=== PATIENT | female | born 1960 | race Caucasian/White ===

== ENCOUNTER → 2017-02-23 | Outpatient (CLI) | payer BC | END | disposition home or self-care (01) | LOC: C.PAPS 14:52 | PROVIDERS: ATTEND Obstetrics & Gynecology | DX: Z01.419 Encounter for gynecological examination (general) (routine) without abnormal findings (principal) ==

== ENCOUNTER 2017-06-16 06:32 | Inpatient (IN) | payer BC ==
[2017-05-29 14:37] VITALS: BMI 24.0
--- NOTE | 2017-05-29 15:03 | PAT Medication Instructions ---
Service Date May 29, 2017. Current Home Medication List Acetaminophen Tab (Tylenol), 650 MG PO prn Estrog Conj/Medryoxyprog Acet (Prempro 0.625MG/2.5MG), 1 TAB PO QPM Medication Instructions For Your Scheduled Surgery - Take the following medications the morning of surgery with a sip of water OTHERWISE NOTHING TO EAT OR DRINK AFTER MIDNIGHT: Acetaminophen Tab (Tylenol), 650 MG PO prn (may take if needed up to 4 hours prior to surgery) - Take the following medications as scheduled the night before surgery: Estrog Conj/Medryoxyprog Acet (Prempro 0.625MG/2.5MG), 1 TAB PO QPM Acetaminophen Tab (Tylenol), 650 MG PO prn If you have any questions please call us at [phone] or [phone] or [phone]
[2017-05-29 15:29] LABS: BASO % 0.5 %; BASO ABS # 0.03 K/uL (0-0.2); COMPLETE YES; EOS % 1.6 %; HEMATOCRIT 41.1 % (37-47); IG% 0.2 %; LYMPH % 25.9 %; LYMPH ABS # 1.58 K/uL (1.2-3.4); MEAN CELL VOLUME 89.5 fL (80-100); MEAN CORPUSCULAR HEMOGLOBIN 30.5 pg (25-34); MEAN CORPUSCULAR HGB CONC 34.1 g/dl (32-36); MEAN PLATELET VOLUME 10.1 fL (7.4-10.4); MONO % 9.5 %; NEUT % 62.3 %; PLATELET COUNT 253 K/uL (130-400); RED BLOOD COUNT 4.59 M/uL (4.2-5.4); WHITE BLOOD COUNT 6.11 K/uL (4.8-10.8)
[2017-05-29 15:51] LABS: PROTHROMBIN TIME (PATIENT) 10.2 SECONDS (9.0-12.0)
[2017-05-29 16:03] LABS: BUN/CREATININE RATIO 22.5 (10-20); CREATININE 0.73 mg/dl (0.60-1.20); POTASSIUM 4.1 mmol/L (3.5-5.1)
--- NOTE | 2017-05-30 11:30 | HISTORY & PHYSICAL EXAMINATION ---
DATE OF ADMISSION: 06/16/2017 CHIEF COMPLAINT: Lower back pain, left-sided ovarian tumor. HISTORY OF PRESENT ILLNESS: The patient is a 56-year-old 2, para 2. She has previously had a D&C, diagnostic laparoscopy in 1999 at which time she was diagnosed with endometriosis by biopsy and she had a second to third degree uterine prolapse being able to bring the cervix out beyond the vaginal introitus. Since that time, she has had well over a year of lower back pain when she is on her feet for long periods of time. This interferes with her ability to function and to do her job as a teacher and it has been suspected to be due to her prolapse. She has also had left-sided pain. She has had a left-sided ovarian cyst, about a 5 cm range present for several years and causing her discomfort. She is presently being scheduled for a left salpingo-oophorectomy, supracervical hysterectomy and suspension of the cervix and obliteration of the cul-de-sac. PAST MEDICAL HISTORY: She got 2 children in good health. ALLERGIES: She has no known drug allergies. PAST SURGICAL HISTORY: She had a D&C, diagnostic laparoscopic in 1999. MEDICAL HISTORY: No history of rheumatic fever, heart disease, heart murmur, diabetes, tuberculosis. SOCIAL HISTORY: No smoking. No excessive alcohol intake. Works as a teacher. FAMILY HISTORY: Mother and father in poor health. Mom is about 80, congestive heart failure and severe Crohn's disease. Father is in his 80s, Parkinson's. She has 1 brother who had a craniopharyngioma, has been on total hormone replacement for years and has a lot of disability secondary to this condition. REVIEW OF SYSTEMS: No symptoms of frequent or severe headaches, ear infections, nosebleed, sore throats, kidney or bladder infections. PHYSICAL EXAMINATION: GENERAL: Well-developed, well-nourished 56-year-old white female, alert, oriented x3 and cooperative in no acute distress, appears her stated age. EYES: Conjunctivae are pink, sclerae white, no evidence of jaundice. EARS: Had normal light reflex bilaterally. NOSE: Had normal mucosa. Septum is midline. There were no polyps. THROAT: No erythema or evidence of infection. Teeth are in good state of repair. HEAD: Normocephalic, normal distribution of hair. NECK: Supple. Trachea midline. Thyroid is not enlarged. There is no adenopathy appreciated. Both carotids are of good intensity. CHEST: Clear to auscultation and percussion. No wheezes, rales or rhonchi appreciated. HEART: Had regular rhythm. S1 and S2 are normal. BREASTS: Normal. ABDOMEN: Soft and nontender. PELVIC: Revealed a normal appearing cervix. Cervix was easily brought out through the vaginal introitus. There was a left adnexal fullness. MUSCULOSKELETAL: Revealed no calf tenderness. IMPRESSIONS OF THIS CASE: Status post dilatation and curettage, status post diagnostic laparoscopy, symptomatic uterine prolapse, endometriosis and left-sided ovarian tumor. MTDD
[~2017-06-16] VITALS: Ht 167.6 cm; Wt 66.0 kg
[2017-06-16] VITALS (14 sets, daily range): BP systolic 98–128; BP diastolic 55–79; PULSE 65–78; TEMP 36.3–36.8; O2SAT 93–100; Ht 167.6 cm; Wt 66.0 kg
[~2017-06-16 06:32] MED LIST: ACET325T96 PO; CEFOXITIN IV 2,000 MG in DEXTROSE 5% 50ML 50 ML IV SCH; CONJ.6255 PO; LACTATED RINGER'S 1000ML 1,000 ML IV SCH
[2017-06-16] MEDS ORDERED: FENTANYL CITRATE INJ 50 MCG/1 ML 2 ML VIAL ONE ×3 (07:04→11:50)
[2017-06-16] MEDS ORDERED: MIDAZOLAM HCL 1 MG/ML 2ML VIAL ONE (07:04)
[2017-06-16] MEDS ORDERED: SCOPOLAMINE 1.5 MG TDSY TD ONE (07:21)
[2017-06-16] MEDS ORDERED: NURSING VERBAL MED ORDER ONE (07:30)
--- NOTE | 2017-06-16 07:52 | History & Physical Bridge Note ---
H&P Re-Evaluation Bridge Note: I have examined the patient, reviewed the History & Physical and in the interval since the performance of the History & Physical I have noted the following changes of clinical significance: No changes noted
[2017-06-16] MEDS ORDERED: MORPHINE SULFATE PF 2MG/2ML SYR ONE (08:27)
[2017-06-16] MEDS ORDERED: HEPARIN SOD (PORCINE) 1000 UNIT/ML 10 ML VIAL ONE (08:57)
[2017-06-16] MEDS ORDERED: GLYCOPYRROLATE INJ 0.2 MG/ML VIAL ONE (09:42)
[2017-06-16] MEDS ORDERED: ROCURONIUM BROMIDE 10 MG/ML 5 ML VIAL IV ONE (09:42)
[2017-06-16] MEDS ORDERED: ONDANSETRON INJ 2 MG/ML 2 ML VIAL ONE (09:42)
[2017-06-16] MEDS ORDERED: PROPOFOL IV EMULSION 10 MG/ML 20 ML VIAL IV ONE (09:42)
[2017-06-16] MEDS ORDERED: NEOSTIGMINE METHYLSULFATE 5 MG/5 ML SYR ONE (09:42)
[2017-06-16] MEDS ORDERED: LIDOCAINE HCL 2% 2 ML VIAL (20MG/ML) ONE (09:42)
[2017-06-16] MEDS ORDERED: DEXAMETHASONE SOD INJ 4 MG/ML VIAL ONE (09:42)
[2017-06-16] MEDS ORDERED: METOCLOPRAMIDE HCL INJ 5 MG/ML 2 ML VIAL ONE (09:42)
[2017-06-16] MEDS ORDERED: SENNA 8.6 MG TAB PO PRN (11:30)
[2017-06-16] MEDS ORDERED: KETOROLAC TROMETHAMINE 30 MG/ML VIAL IV. PRN (11:30)
[2017-06-16] MEDS ORDERED: MAGNESIUM HYDROXIDE SUSP 30 ML UDC PO PRN (11:30)
[2017-06-16] MEDS ORDERED: BISACODYL 10 MG SUPP PR PRN (11:30)
--- NOTE | 2017-06-16 11:33 | [facility] Post Operative Brief Note ---
Immediate Operative Summary Operative Date Jun 16, 2017. Pre-Operative Diagnosis Symptomatic uterine prolapse, endometriosis and left-sided ovarian tumor Post-Operative Diagnosis Symptomatic uterine prolapse, endometriosis and left-sided ovarian tumor Procedure(s) Performed Left Salpingo-Oophorectomy, Supracervical Hysterectomy, Suspension of Cervix Surgeon Dr. Emil Claros Manager Fine Dining Surgeon(s) Dr. Antoine Little Estimated Blood Loss 250 mL Findings left sided ovarian tumor Specimens Frozen Section #1. Left ovarian tumor Sent to lab at 0952, carried by RN. Cytology #1. Pelvic washings Permanent specimens A: Uterus, partial cervix Complication(s) None Disposition Recovery Room / PACU
--- NOTE | 2017-06-16 11:47 | OPERATIVE REPORT ---
DATE OF OPERATION: 06/16/2017 INDICATIONS FOR SURGERY: Persistent left ovarian tumor for 3 years and uterine prolapse. PREOPERATIVE DIAGNOSES: Left-sided ovarian tumor, uterine prolapse. 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 PROCEDURE: Supracervical hysterectomy, obliteration of the cul-de-sac, left salpingo-oophorectomy, suspension of vaginal cuff. SURGEON: Dr. Claros. CUTTER HELPER: Dr. Little. ESTIMATED BLOOD LOSS: 250 mL. ANESTHESIA: Spinal narcotics with general. OPERATIVE FINDINGS AND PROCEDURE: The patient was brought to the OR table, correctly identified by armband and conversation. Compression stockings were applied. She received preoperative antibiotics. Russell catheter was inserted in the bladder, connected to gravity drainage. Vaginal cuff was prepped with Betadine solution. The patient was given spinal narcotics and general anesthesia. Abdomen was prepped with an alcohol based sterilizing solution, draped in usual sterile fashion. Pfannenstiel incision was made, carried down to the anterior fascia by sharp dissection. Hemostasis was secured by electrocauterization. Fascia was incised transversely, from the recti muscles by blunt and sharp dissection. Recti muscles were in the midline and then the peritoneum which was carefully entered. There were some omental adhesions to the area of the umbilicus and the anterior abdominal wall. These were taken down bluntly and also with electrocautery. Following this, 4 laparotomy packs were used to retract the intestines and provide adequate exposure of the pelvic cavity along with an O'Yonatan-O'Arevalo self-retaining retractor. The fundus of the uterus was grasped with a double tooth tenaculum. There was a 5+ cm cyst of the left ovary which had replaced the entire left ovary. This was carefully removed. The peritoneum was entered on the lateral pelvic wall. The ovarian ligament was isolated and then clamped, doubly tied and also the attachment to the lateral pelvic wall was doubly ligated with a silk suture. The ovary was then excised intact and submitted for pathological evaluation. We also did peritoneal washings for cytology. I then ligated the round ligament on that side proximally and distally and grabbed the round ligament proximally with a Laurence, cut it and cauterized the edge. I then did the same on the right side, clamping the round ligament close to the fundus, ligating it distally, cutting it, tagging it. I then punched through the posterior leaf of the broad ligament bluntly and clamped the ovarian ligament close to the uterus and distal cut between and then doubly ligated the stump thus saving the right tube and ovary. Then, an incision was made above the vesicouterine fold. Bladder was undermined bluntly and pushed out of the operative field. Uterine vessels were skeletonized on each side, clamped with a curved Quiana, then cut with a knife and then doubly ligated with a chromic gut suture. I then used a curved Quiana to slide off the cervix on either side, cut with a stump and ligated with a chromic gut suture. This was done in 2 steps because of the length of the cardinal ligament. I then left a small piece of the cervix behind and then did an electrocautery to remove the specimen, which consisted of 90% of the cervix and the uterus. I then grabbed the edges of the cervix and then sewed them as I would vaginal cuff. It suture ligated the angles to the stumps of the cardinal ligaments on each side. I then approximated the front to back with a [id number] suture of chromic on either side, attaching the lateral sutures into the cardinal ligament. I then whipstitched open the center of the vaginal cuff and placed a [place] drain with a safety pin down into the vagina. There was a large defect in the cul-de-sac and so I did a closure of the cul-de-sac with a heavy duty Vicryl. I sutured from the patient's left, the stump of the cardinal ligament and pursestringed it and then sutured the right uterosacral ligament and came around the other side, picked up the left uterosacral ligament and then sutured to the right cardinal ligament. This obliterated the cul-de-sac and helped suspend the vaginal cuff. Hemostasis was excellent. I then tied the round ligaments into the vaginal cuff on both the right and left side for more suspension and then I closed the peritoneum in a continuous fashion burying the stump of the right tube and ovary on the right side and bringing the bladder flap down covering all raw edges. I did this down to the center of the cuff on right side and I proceeded to take this stumps of the ovarian ligament, buried them and approximate the peritoneum and cover all the stumps on the patient's left side and then I tied the 2 sutures to each other. We then washed the pelvis clean. Hemostasis was excellent. We placed edge of the vaginal cuff in the cul-de-sac. We removed the packs, there were no adhesions present. I did a careful anatomical abdominal wall closure. Peritoneum was closed with a mattress suture of chromic catgut. Recti muscles were approximated with interrupted [id number] suture of chromic catgut. The fascia was closed with continuous interlocking suture of Vicryl on each side, tied in the midline. SubQ was approximated with a running 0 plain and skin edges were approximated with staple clips. I attest to the content of the Intraoperative Record and any orders documented therein. Any exception s are noted below.
[2017-06-16] MEDS ORDERED: LACTATED RINGER'S 1000ML 500 ML IV PRN (11:50)
[2017-06-16] MEDS ORDERED: SODIUM CHLORIDE 0.9% 1000ML 1,000 ML IV PRN (11:50)
[2017-06-16] MEDS ORDERED: NALOXONE HCL INJ 1 MG in SODIUM CHLORIDE 0.9% 1000ML 1,000 ML IV PRN ×4 (11:50)
[2017-06-16] MEDS ORDERED: NALOXONE HCL INJ 0.08 MG in SYRINGE 1.8 ML IV PRN (11:50)
[2017-06-16] MEDS ORDERED: ONDANSETRON INJ 2 MG/ML 2 ML VIAL IV PRN (12:00)
[2017-06-16] MEDS ORDERED: NO NARCOTICS OR SEDATIVES SCH (12:00)
[2017-06-16] MEDS ORDERED: PROMETHAZINE HCL INJ 25 MG in SODIUM CHLORIDE 0.9% 50ML 50 ML IV PRN (12:00)
[2017-06-16] MEDS ORDERED: NALBUPHINE HCL INJ 10 MG/ML AMP IV PRN (12:00)
[2017-06-16] MEDS ORDERED: FENTANYL CITRATE INJ 50 MCG/1 ML 2 ML VIAL IV PRN (12:00)
[2017-06-16] MEDS ORDERED: MoRPHine SULFATE PF 1 MG/ML 10 ML AMP/VIAL EPI PRN (12:00)
[2017-06-16] MEDS ORDERED: DiphenhydrAMINE HCL 50 MG/ML VIAL IV PRN (12:00)
[2017-06-16] MEDS ORDERED: EpHEDrine SULFATE INJ 50 MG/ML AMP IV PRN (12:00)
[2017-06-16] MEDS ORDERED: NALOXONE HCL 0.4 MG/1 ML VIAL/CARP IV PRN (12:00)
--- NOTE | 2017-06-16 12:30 | Anesthesiology Progress Note ---
Anesthesia Post Op Note Date & Time Jun 16, 2017 at 12:30 Vital Signs Pain Intensity: 6 Vital Signs Past 12 Hours Date Time Temp Pulse Resp B/P (MAP) Pulse Ox O2 Delivery O2 Flow Rate FiO2 06/16/17 12:20 50 16 122/67 100 Nasal Cannula 2 06/16/17 12:10 36.2 53 15 115/64 100 Nasal Cannula 2 06/16/17 12:00 50 15 117/75 100 Nasal Cannula 2 06/16/17 11:50 50 18 132/76 100 Nasal Cannula 2 06/16/17 11:40 65 16 141/78 100 Oxymask 5 06/16/17 11:30 36.1 70 16 137/83 100 Oxymask 5 06/16/17 07:36 36.7 74 18 128/79 97 Room Air Notes Mental Status: alert / awake / arousable, participated in evaluation Pt Amnestic to Procedure: Yes Nausea / Vomiting: adequately controlled Pain: adequately controlled Airway Patency, RR, SpO2: stable & adequate BP & HR: stable & adequate Hydration State: stable & adequate Anesthetic Complications: no major complications apparent
[2017-06-16] MEDS: D5W AND LACTATED RINGERS 1,000 ML IV SCH ×2 (13:10→21:39)
[2017-06-16] MEDS: KETOROLAC TROMETHAMINE 30 MG/ML VIAL IV. PRN ×2 (13:20→19:45)
[2017-06-17] VITALS (8 sets, daily range): BP systolic 99–115; BP diastolic 63–67; PULSE 62–88; TEMP 36.6–37.3; O2SAT 95–98
[2017-06-17] MEDS: KETOROLAC TROMETHAMINE 30 MG/ML VIAL IV. PRN (02:21)
[2017-06-17] MEDS ORDERED: DC INTRASPINAL MORPHINE SCH (04:00)
[2017-06-17] MEDS ORDERED: MEPERIDINE HCL 50 MG/ML CARP IV PRN ×2 (04:01)
[2017-06-17] MEDS ORDERED: ONDANSETRON INJ 2 MG/ML 2 ML VIAL IV PRN (04:01)
[2017-06-17] MEDS ORDERED: INFLUENZA ADMINISTRATION CHARGE ONE (08:00)
[2017-06-17] MEDS ORDERED: INFLUENZA VIRUS QUAD VACCINE 0.5 ML SYR IM. ONE (08:00)
[2017-06-17 08:02] LABS: BASO % 0.1 %; BASO ABS # 0.01 K/uL (0-0.2); COMPLETE YES; EOS % 0.2 %; IG% 0.3 %; LYMPH % 11.6 %; LYMPH ABS # 1.15 K/uL (1.2-3.4); MEAN CELL VOLUME 91.6 fL (80-100); MEAN CORPUSCULAR HEMOGLOBIN 29.8 pg (25-34); MEAN CORPUSCULAR HGB CONC 32.5 g/dl (32-36); MEAN PLATELET VOLUME 9.9 fL (7.4-10.4); MONO % 7.9 %; NEUT % 79.9 %; PLATELET COUNT 202 K/uL (130-400); RED BLOOD COUNT 3.93 M/uL (4.2-5.4); WHITE BLOOD COUNT 9.89 K/uL (4.8-10.8)
--- NOTE | 2017-06-17 10:06 | Progress Note ---
Subjective Jun 17, 2017. Subjective conversation w/ patient Ambulation: ambulating normally Voiding: no voiding problems Passing Gas: Yes Diet Tolerance: Regular Diet Lochia: Small Review of Systems Constitutional: + fever Objective Vital Signs Date Time Temp Pulse Resp B/P (MAP) Pulse Ox O2 Delivery O2 Flow Rate FiO2 06/17/17 08:00 97 Room Air 06/17/17 08:00 36.6 88 18 99/65 (76) 97 Room Air 06/17/17 04:00 36.8 85 18 105/63 (77) 97 Room Air 06/17/17 04:00 18 97 06/17/17 03:15 16 97 06/17/17 02:15 18 98 06/17/17 01:20 18 97 06/17/17 00:20 16 95 06/16/17 23:20 18 97 06/16/17 23:20 36.5 71 18 101/60 (74) 97 Room Air 06/16/17 23:20 97 Room Air 06/16/17 22:30 15 95 06/16/17 21:30 16 95 06/16/17 20:30 36.7 68 18 100/55 (70) 95 Room Air 06/16/17 20:30 18 95 06/16/17 19:30 18 94 06/16/17 18:30 16 97 06/16/17 17:30 18 96 06/16/17 16:30 16 93 06/16/17 15:30 95 Room Air 06/16/17 15:30 36.8 66 18 98/55 (69) 97 Room Air 06/16/17 15:30 18 95 06/16/17 14:35 16 99 06/16/17 14:35 36.5 78 16 111/63 (79) 99 Nasal Cannula 2.0 06/16/17 13:35 65 16 109/69 (82) 98 Room Air 06/16/17 13:35 16 98 06/16/17 13:05 36.3 76 16 107/77 (87) 99 Nasal Cannula 2.0 06/16/17 12:35 36.5 66 16 107/74 (85) 97 Nasal Cannula 2.0 06/16/17 12:35 16 97 06/16/17 12:35 97 Nasal Cannula 2.0 06/16/17 12:35 100 Ambu-Bag 2.0 06/16/17 12:20 50 16 122/67 100 Nasal Cannula 2 06/16/17 12:10 36.2 53 15 115/64 100 Nasal Cannula 2 06/16/17 12:00 50 15 117/75 100 Nasal Cannula 2 06/16/17 11:50 50 18 132/76 100 Nasal Cannula 2 06/16/17 11:40 65 16 141/78 100 Oxymask 5 06/16/17 11:30 36.1 70 16 137/83 100 Oxymask 5 Physical Exam General Appearance: WELL-APPEARING Respiratory/Chest: lungs clear Abdomen: normal bowel sounds, non tender Incision Description: Clean, Dry & Intact Extremities: no pedal edema, no calf tenderness Laboratory Results Last 24 Hours Test 06/17/17 07:50 White Blood Count 9.89 K/uL Red Blood Count 3.93 M/uL Hemoglobin 11.7 g/dL Hematocrit 36.0 % Mean Corpuscular Volume 91.6 fL Mean Corpuscular Hemoglobin 29.8 pg Mean Corpuscular Hemoglobin Concent 32.5 g/dl Platelet Count 202 K/uL Mean Platelet Volume 9.9 fL Neutrophils (%) (Auto) 79.9 % Lymphocytes (%) (Auto) 11.6 % Monocytes (%) (Auto) 7.9 % Eosinophils (%) (Auto) 0.2 % Basophils (%) (Auto) 0.1 % Neutrophils # (Auto) 7.90 K/uL Lymphocytes # (Auto) 1.15 K/uL Monocytes # (Auto) 0.78 K/uL Eosinophils # (Auto) 0.02 K/uL Basophils # (Auto) 0.01 K/uL RDW Standard Deviation 42.4 fL RDW Coefficient of Variation 12.6 % Immature Granulocyte % (Auto) 0.3 % Immature Granulocyte # (Auto) 0.03 K/uL Assessment and Plan Post-Op
[2017-06-17] MEDS: IBUPROFEN 600 MG TAB PO PRN ×2 (13:33→17:22)
[2017-06-17] MEDS: OXYCODONE/ACETAMINOPHEN 5-325 TAB PO PRN ×2 (15:07→20:12)
[2017-06-18] MEDS: OXYCODONE/ACETAMINOPHEN 5-325 TAB PO PRN ×3 (00:28→10:30)
[2017-06-18] MEDS: IBUPROFEN 600 MG TAB PO PRN ×3 (00:28→10:30)
[2017-06-18 06:55] LABS: BASO % 0.3 %; BASO ABS # 0.03 K/uL (0-0.2); COMPLETE YES; HEMATOCRIT 36.7 % (37-47); IG% 0.2 %; LYMPH % 16.6 %; LYMPH ABS # 1.76 K/uL (1.2-3.4); MEAN CORPUSCULAR HEMOGLOBIN 31.1 pg (25-34); MEAN CORPUSCULAR HGB CONC 33.8 g/dl (32-36); MEAN PLATELET VOLUME 10.3 fL (7.4-10.4); MONO % 8.9 %; PLATELET COUNT 241 K/uL (130-400); RED BLOOD COUNT 3.99 M/uL (4.2-5.4)
[2017-06-18 07:15] VITALS: BP 107/61; PULSE 65; TEMP 36.8; O2SAT 96
--- NOTE | 2017-06-18 10:09 | Progress Note ---
Subjective Jun 18, 2017. Subjective conversation w/ patient Ambulation: ambulating normally Voiding: no voiding problems Passing Gas: Yes Diet Tolerance: Regular Diet Lochia: Small Review of Systems Constitutional: + fever Objective Vital Signs Date Time Temp Pulse Resp B/P (MAP) Pulse Ox O2 Delivery O2 Flow Rate FiO2 06/18/17 07:15 96 Room Air 06/18/17 07:15 36.8 65 18 107/61 (76) Room Air 06/17/17 23:20 36.7 62 16 115/67 (83) 98 Room Air 06/17/17 23:20 98 Room Air 06/17/17 15:05 37.3 78 18 115/64 (81) 98 Room Air 06/17/17 15:05 98 Room Air Physical Exam General Appearance: WELL-APPEARING Respiratory/Chest: lungs clear Abdomen: normal bowel sounds, non tender Incision Description: Clean, Dry & Intact Extremities: no pedal edema, no calf tenderness Laboratory Results Last 24 Hours Test 06/18/17 06:45 White Blood Count 10.60 K/uL Red Blood Count 3.99 M/uL Hemoglobin 12.4 g/dL Hematocrit 36.7 % Mean Corpuscular Volume 92.0 fL Mean Corpuscular Hemoglobin 31.1 pg Mean Corpuscular Hemoglobin Concent 33.8 g/dl Platelet Count 241 K/uL Mean Platelet Volume 10.3 fL Neutrophils (%) (Auto) 72.0 % Lymphocytes (%) (Auto) 16.6 % Monocytes (%) (Auto) 8.9 % Eosinophils (%) (Auto) 2.0 % Basophils (%) (Auto) 0.3 % Neutrophils # (Auto) 7.64 K/uL Lymphocytes # (Auto) 1.76 K/uL Monocytes # (Auto) 0.94 K/uL Eosinophils # (Auto) 0.21 K/uL Basophils # (Auto) 0.03 K/uL RDW Standard Deviation 43.4 fL RDW Coefficient of Variation 12.8 % Immature Granulocyte % (Auto) 0.2 % Immature Granulocyte # (Auto) 0.02 K/uL Assessment and Plan Post-Op Day#: 2 Continue Routine Care: markos drain removed from vaginal cuff
--- NOTE | 2017-06-18 10:13 | Discharge Instructions ---
Discharge Instructions Date of Service Jun 18, 2017. Admission Reason for Admission: Persistent left Ovarian Enlargement Discharge Discharge Diagnosis / Problem: ovarian tumor uterine prolapse Discharge Goals Goal(s): Routine recovery after surgery Activity Recommendations Activity Limitations: as noted below ACTIVITY RECOMMENDATIONS: * Gradual return to full activity over next 2-3 weeks. * No heavy lifting over next 2-3 weeks. * Nothing in the vagina (no intercourse, tampons, or douching) for 4 weeks___ * You may walk up and down steps as necessary. * You may drive a car in 2 weeks. * Hot shower or tub bath daily. SPECIAL CARE INSTRUCTIONS: * Check temperature twice daily for one week. Report any elevation over 100.4 degrees Fahrenheit (38.0 degrees Celsius). * Call your doctor if bleeding becomes heavier than the heaviest part of your period - saturating a sanitary pad within an hour. * If you develop a red, hard, warm swollen lump on your incision or if you develop any separation of or drainage from your incision, notify your doctor. . Instructions / Follow-Up Instructions / Follow-Up ACTIVITY RECOMMENDATIONS: * Gradual return to full activity over next 2-3 weeks. * No heavy lifting over next 2-3 weeks. * Nothing in the vagina (no intercourse, tampons, or douching) for 4 weeks * You may walk up and down steps as necessary. * You may drive a car in 2 weeks. * Hot shower or tub bath daily. SPECIAL CARE INSTRUCTIONS: * Check temperature twice daily for one week. Report any elevation over 100.4 degrees Fahrenheit (38.0 degrees Celsius). * Call your doctor if bleeding becomes heavier than the heaviest part of your period - saturating a sanitary pad within an hour. * If you develop a red, hard, warm swollen lump on your incision or if you develop any separation of or drainage from your incision, notify your doctor. Current Hospital Diet Patient's current hospital diet: Regular Diet Discharge Diet Recommended Diet: Regular Diet Procedures Procedures Performed: Left Salpingo-Oophorectomy, Supracervical Hysterectomy, Suspension of Cervix Pending Studies Studies pending at discharge: no Medical Emergencies . Who to Call and When: Medical Emergencies: If at any time you feel your situation is an emergency, please call 911 immediately. . Non-Emergent Contact Non-Emergency issues call your: Parboiler Call Non-Emergent contact if: temperature is above 100.5 . . "Provider Documentation" section prepared by Emil Claors. . VTE Core Measure Inpt VTE Proph given/why not?: Treatment not indicated
--- NOTE | 2017-06-18 10:32 | DISCHARGE SUMMARY ---
Mrs. Garcia was brought in for removal of a persistent left-sided ovarian tumor that had been present for over 3 years. She also underwent a supracervical hysterectomy with suspension of the cuff. She had about a third degree uterine prolapse and endometriosis on previous laparoscopy several years before. On the day of admission, she was brought in, her hemoglobin was 14.0 and hematocrit 41.1. On the day of admission, she was taken to the OR, where she underwent a total abdominal hysterectomy with preservation of a small piece of the cervix, left salpingo-oophorectomy with obliteration of the cul-de-sac with suspension to the uterosacral ligaments and suspension of the cuff with the round ligaments. Estimated blood loss at time of surgery was about to 250 mL. Her postoperative hemoglobin was 12.4 and hematocrit 36.7. It should be noted that the ovary was removed intact and that the peritoneal washings were obtained and then a frozen section at the time of surgery revealed a benign serous cystadenoma. There was also a Shantel drain placed in the vaginal cuff for drainage. Postoperatively, the patient did well. She remained afebrile. Her bowel sounds returned within 24 hours and on the second postoperative day, she was eating well, ambulating well, pain was well controlled with a combination of Percocet and Motrin. Also at that time, a Shantel drain with a safety pin was removed from the cuff and the patient requested discharge. She was discharged to be followed at home and office. Given the usual instructions to call if she had a temperature over 100 or any heavy bleeding and to come back for removal of ara. SUZETTE
[2017-06-18 10:41] VITALS: BP 107/61; PULSE 65; TEMP 36.8; O2SAT 96
== END 2017-06-18 11:25 | disposition home or self-care (01) | DRG 743 ==
LOC: C.ACU 06:32 → C.MS4N 07:20 → ENRESERV 12:13
PROVIDERS: ADMIT Obstetrics & Gynecology; ATTEND Obstetrics & Gynecology
PROC: 0UT90ZL Resection of Uterus, Supracervical, Open Approach (ICD-10-PCS; principal; 2017-06-16 08:15)
PROC: 0UT10ZZ Resection of Left Ovary, Open Approach (ICD-10-PCS; principal; 2017-06-16 08:15)
PROC: 0UBC0ZZ Excision of Cervix, Open Approach (ICD-10-PCS; principal; 2017-06-16 08:15)
PROC: 0U5F0ZZ Destruction of Cul-de-sac, Open Approach (ICD-10-PCS; principal; 2017-06-16 08:15)
PROC: 0UT60ZZ Resection of Left Fallopian Tube, Open Approach (ICD-10-PCS; principal; 2017-06-16 08:15)
PROC: 0USG0ZZ Reposition Vagina, Open Approach (ICD-10-PCS; principal; 2017-06-16 08:15)
DX: N81.3 Complete uterovaginal prolapse (principal); D27.1 Benign neoplasm of left ovary; N80.9 Endometriosis, unspecified; Z87.42 Personal history of other diseases of the female genital tract; Z79.890 Hormone replacement therapy; Z82.49 Family history of ischemic heart disease and other diseases of the circulatory system; Z83.79 Family history of other diseases of the digestive system; Z82.0 Family history of epilepsy and other diseases of the nervous system